=== PATIENT | male | born 1955 | race Caucasian/White ===

== ENCOUNTER 2017-01-06 23:55 | Emergency (ER) | payer SELFPAY | END 2017-01-07 03:50 | disposition home or self-care (01) | LOC: ER 23:55 | DX: M54.16 Radiculopathy, lumbar region (principal); F17.210 Nicotine dependence, cigarettes, uncomplicated; Z90.49 Acquired absence of other specified parts of digestive tract | CPT/HCPCS: 36415; 96374; 96375; 96376 ==